=== PATIENT | male | born 1985 | race Hispanic/Latino ===

== ENCOUNTER → 2019-12-06 | Outpatient (CLI) | payer OTHER ==
--- NOTE | 2019-12-06 12:34 | REP ---
LUMBOSACRAL SPINE: Five views of the lumbosacral spine performed. There is no compression fracture. There is normal lordosis and alignment. There is mild disc space narrowing and subchondral sclerosis at the L5-S1 disc space with sclerosis and spurring at that facet joints at that level as well. Posterior elements are intact. IMPRESSION: Mild degenerative changes L5-S1 level. Electronically Signed by Sergio Ibarra MD 12/10/2019 03:34 P
--- NOTE | 2019-12-06 12:37 | REP ---
BILATERAL ELBOW SERIES: Four views of each elbow performed. No acute fracture, dislocation or intrinsic bone disease is visualized. Joint spaces appear normal. No joint effusion is seen. IMPRESSION: Negative bilateral elbow series. Electronically Signed by Sergio Ibarra MD 12/10/2019 03:38 P
--- NOTE | 2019-12-06 12:37 | REP ---
BILATERAL SHOULDER SERIES: Three views of bilateral shoulders performed. There is no fracture or dislocation bilaterally. There is moderate narrowing and spurring at the right acromioclavicular joint. Lobular calcifications above the coracoid process could represent ligamentous calcifications involving the coracoclavicular ligament. On the left, there is mild joint space narrowing and spurring at the acromioclavicular joint without other significant finding. IMPRESSION: Bilateral degenerative changes AC joints. Electronically Signed by Sergio Ibarra MD 12/10/2019 03:37 P
--- NOTE | 2019-12-06 12:38 | REP ---
RIGHT HIP, TWO VIEWS: There is no evidence of an acute fracture, dislocation or intrinsic bone disease. Hip joint appears unremarkable. IMPRESSION: No fracture or dislocation. Electronically Signed by Sergio Ibarra MD 12/10/2019 03:37 P
--- NOTE | 2019-12-06 12:42 | REP ---
BILATERAL ANKLE SERIES: Four views of each angle performed. I see no acute fracture or dislocation. On the left, there is a 1.2 cm smoothly marginated round ossific density at the tip of the medial malleolus and an 8 mm similar-appearing ossific density adjacent to the lateral malleolus probably representing old fractures. Ankle mortise is anatomic. There is a tiny inferior calcaneal spur. On the right, a tiny rounded calcific density adjacent to the medial malleolus probably represents an old avulsion fracture. Similar tiny round ossific density adjacent to the lateral malleolus probably represents an old avulsion fracture. Ankle mortise is anatomic. IMPRESSION: There appear to be old fractures of the bilateral medial and lateral malleoli as discussed in detail above. Electronically Signed by Sergio Ibarra MD 12/10/2019 03:38 P
== END ==
LOC: M RAD 09:07
PROVIDERS: ATTEND Surgery
DX: M25.521 Pain in right elbow (principal); M25.522 Pain in left elbow